=== PATIENT | female | born 1970 | race Caucasian/White ===

== ENCOUNTER 2021-09-29 15:18 | Emergency (ER) | payer OTHER ==
--- NOTE | 2021-09-29 15:41 | ERPHSYRPT ---
- History of Present Illness Time Seen by Provider: 09/29/21 15:50 Source: patient Exam Limitations: no limitations Physician History: Patient is a 50-year-old female presents to emergency department for evaluation of dysuria flank pain dental pain. Patient symptoms started over the past couple days. Patient noticed facial swelling today. The area is tender. Patient has many carious teeth. Patient is partially edentulous. No headache. No nausea or vomiting. Patient also states she has been experiencing dysuria. Patient noted some blood in her urine today. Patient complains of mild left flank pain. No trauma no fever. Symptoms are mild to moderate in intensity. No specific worsening improving factors. Patient voices no other complaints or concerns at this time. Timing/Duration: day(s) (2 days) Severity: moderate Modifying Factors: Improves With: nothing Associated Symptoms: denies symptoms, No nausea, No vomiting, No loss of appetite, No syncope, No seizure Allergies/Adverse Reactions: No Known Drug Allergies Allergy (Verified 09/29/21 15:52) Home Medications: Baclofen 10 mg [Lioresal 10 mg] 10 mg PO TID 09/29/21 [History] Omeprazole 20 mg PO DAILY 09/29/21 [History] - Review of Systems Constitutional: No Symptoms, No Fever, No Chills Eyes: No Symptoms Ears, Nose, & Throat: No Symptoms Respiratory: No Symptoms, No Cough, No Dyspnea Cardiac: No Symptoms, No Chest Pain, No Edema, No Syncope Abdominal/Gastrointestinal: No Symptoms, No Abdominal Pain, No Nausea, No Vomiting, No Diarrhea Genitourinary Symptoms: No Symptoms, No Dysuria Musculoskeletal: No Symptoms, No Back Pain, No Neck Pain Skin: No Symptoms, No Rash Neurological: No Symptoms, No Dizziness, No Focal Weakness, No Sensory Changes Psychological: No Symptoms Endocrine: No Symptoms Hematologic/Lymphatic: No Symptoms Immunological/Allergic: No Symptoms All Other Systems: Reviewed and Negative - Nursing Vital Signs Nursing Vital Signs: Initial Vital Signs Temperature 98.0 F 09/29/21 15:41 Pulse Rate 78 09/29/21 15:41 Blood Pressure 158/77 09/29/21 15:41 O2 Sat by Pulse Oximetry 96 09/29/21 15:41 Pain Scale Pain Intensity 2 - Physical Exam General Appearance: no apparent distress, alert Eye Exam: PERRL/EOMI, eyes nml inspection Ears, Nose, Throat Exam: normal ENT inspection, TMs normal, pharynx normal, moist mucous membranes, other (Dental abscess possible canine space abscess mostly edentulous. The few teeth that are present appear carious.) Neck Exam: normal inspection, non-tender, supple, full range of motion Respiratory Exam: normal breath sounds, lungs clear, airway intact, No respiratory distress Cardiovascular Exam: regular rate/rhythm, normal heart sounds, normal peripheral pulses Gastrointestinal/Abdomen Exam: soft, normal bowel sounds, No tenderness, No mass Back Exam: normal inspection, normal range of motion, No CVA tenderness, No vertebral tenderness Extremity Exam: normal inspection, normal range of motion, pelvis stable Neurologic Exam: alert, oriented x 3, cooperative, normal mood/affect, sensation nml, No motor deficits Skin Exam: normal color, warm, dry, No rash Lymphatic Exam: No adenopathy SpO2 Interpretation: normal SpO2: 96 O2 Delivery: Room Air - Course Nursing assessment & vital signs reviewed: Yes - CT Exams Abdomen/Pelvis CT Interpretation: Tele-radiologist Report (No comps. Negative renal stone or evidence of obstructive uropathy. Mild diffuse fecal stasis greatest right hemicolon. Remaining abdomen pelvis negative.) - Radiology Ultrasound Exam Pelvis Ultrasound: tele radiology report (Negative transvaginal pelvic ultrasound. Uterus anteverted. Measuring 8.1 x 4.2 x 6.4 cm. No masses. Endometrial stripe 4.5 mm. Right ovary is 3 x 1.7 x 2.9 cm left ovary measures 2.7 x 1.3 x 2.4 cm. No suspicious masses.) Ordered Tests: Active Orders 24 hr Category Date Time Status ABDOMEN AND PELVIS W/0 CONTRAS [CT] Stat Exams 09/29/21 17:39 Taken PELVIS TRANS VAGINAL [US] Stat Exams 09/29/21 17:05 Completed CULTURE,URINE Stat Lab 09/29/21 16:15 Received UA W/RFX UR CULTURE Stat Lab 09/29/21 16:15 Completed Transfer Order Routine Transfer 09/29/21 Ordered Medication Summary Discontinued Medications Generic Name Dose Route Start Last Admin Trade Name Freq PRN Reason Stop Dose Admin Amoxicillin/Clavulanate Potassium 875 mg 09/29/21 15:38 09/29/21 16:01 Amox Tr/Potassium Clavulanate 875 Mg Tablet PO 09/29/21 15:39 875 mg STAT ONE Administration Amoxicillin/Clavulanate Potassium Confirm 09/29/21 15:58 Amox Tr/Potassium Clavulanate 875 Mg Tablet Administered 09/29/21 15:59 Dose 875 mg .ROUTE .STK-MED ONE Amoxicillin/Clavulanate Potassium Confirm 09/29/21 16:00 Amox Tr/Potassium Clavulanate 875 Mg Tablet Administered 09/29/21 16:01 Dose 875 mg .ROUTE .STK-MED ONE Ketorolac Tromethamine 30 mg 09/29/21 15:36 09/29/21 16:00 Ketorolac Tromethamine 30 Mg/Ml Inj IM 09/29/21 15:37 30 mg STAT ONE Administration Ketorolac Tromethamine Confirm 09/29/21 15:58 Ketorolac Tromethamine 30 Mg/Ml Inj Administered 09/29/21 15:59 Dose 30 mg .ROUTE .STK-MED ONE Ketorolac Tromethamine Confirm 09/29/21 16:00 Ketorolac Tromethamine 30 Mg/Ml Inj Administered 09/29/21 16:01 Dose 30 mg .ROUTE .STK-MED ONE Lab/Rad Data: Laboratory Results 09/29/21 Range/Units 16:15 Urine Color YELLOW (YELLOW) Urine Appearance SLIGHTLY CLOUDY (CLEAR) Urine pH 7.0 (5-6) Ur Specific [place] 1.008 (1.005-1.025) Urine Protein NEGATIVE (Negative) Urine Ketones NEGATIVE (NEGATIVE) Urine Blood SMALL (0-5) Doug/ul Urine Nitrite NEGATIVE (NEGATIVE) Urine Bilirubin NEGATIVE (NEGATIVE) Urine Urobilinogen NEGATIVE (0-1) mg/dL Ur Leukocyte Esterase MODERATE (NEGATIVE) Urine WBC (Auto) 51-100 (0-5) /HPF Urine RBC (Auto) >101 (0-2) /HPF U Epithel Cells (Auto) NONE (FEW) /HPF Urine Bacteria (Auto) NONE (NEGATIVE) /HPF Urine Mucus (Auto) SLIGHT (NEGATIVE) /HPF Urine Culture Reflexed YES (NO) Urine Glucose NEGATIVE (NEGATIVE) mg/dL - Progress Progress: improved Progress Note: Patient reassessed. Pain improved. Pelvic ultrasound negative. CT abdomen pelvis negative. Patient has a urinary tract infection. IV antibiotics provided. Will discharge home. Patient will be discharged home on Keflex. Plan of care discussed with patient. She agrees to follow-up with her primary care doctor within 48 hours for evaluation. Patient voices no other complaints concerns at this time. Portions of this note were created with voice recognition technology. There may be grammatical, spelling, punctuation or sound alike errors 09/29/21 18:44 Counseled pt/family regarding: lab results, diagnosis, need for follow-up, rad results - Departure Departure Disposition: Home Clinical Impression: Dental abscess, Dysuria, UTI (urinary tract infection) Condition: Stable Critical Care Time: No Referrals: Provider,Unknown [Primary Care Provider] - Follow up/PCP as directed Additional Instructions: Discharge/Care Plan SHREYAS COELHO was seen on 09/29/21 in the Emergency Room. The patient was counseled regarding Diagnosis,Lab results, Imaging studies, need for follow up and when to return to the Emergency Room. Prescriptions given: Discharge Note I have spoken with the patient and/or caregivers. I have explained the patient's condition, diagnosis and treatment plan based on the information available to me at this time. I have answered the patient's and/or caregiver's questions and addressed any concerns. The patient and/or caregivers have as good understanding of the patient's diagnosis, condition and treatment plan as can be expected at t his point. The vital signs have been stable. The patient's condition is stable and appropriate for discharge from the emergency department. The patient will pursue further outpatient evaluation with the primary care physician or other designated or consulting physician as outlined in the discharge instructions. The patient and/or caregivers are agreeable to this plan of care and follow-up instructions have been explained in detail. The patient and/or caregivers have received these instruction. The patient/and or caregivers are aware that any significant change in condition or worsening of symptoms should prompt an immediate return to this or the closest emergency department or call 911. Prescriptions: Cephalexin [Keflex] 750 mg PO BID 7 Days #14
[2021-09-29] MEDS ORDERED: TORAdol 30 mg Injection ONE ×2 (15:58→16:00)
[2021-09-29] MEDS ORDERED: Augmentin 875-125 Tablet ONE ×2 (15:58→16:00)
[2021-09-29] MEDS: TORAdol 30 mg Injection IM ONE (16:00)
[2021-09-29] MEDS: Augmentin 875-125 Tablet PO ONE (16:01)
[2021-09-29 16:42] LABS: Appearance SLIGHTLY CLOUDY (CLEAR); Bilirubin NEGATIVE (NEGATIVE); Blood SMALL Ery/ul (0-5); Glucose NEGATIVE (NEGATIVE); Ketones NEGATIVE (NEGATIVE); Leukocyte Esterase MODERATE (NEGATIVE); Mucus SLIGHT /HPF (NEGATIVE); Nitrite NEGATIVE (NEGATIVE); Protein,Urine Dip NEGATIVE (Negative); Specific Gravity 1.008 (1.005-1.025); Urobilinogen NEGATIVE mg/dL (0-1); WBC 51-100 /HPF (0-5)
[2021-09-29 16:46] LABS: RBC >101 /HPF (0-2)
--- NOTE | 2021-09-29 17:18 | XRAY ---
Indication: Torsion. Two-dimensional transvaginal pelvic sonogram performed. Comparison: None Uterus anteverted measuring 8.1 x 4.2 x 6.4 cm. No focal solid/cystic uterine mass. Endometrial stripe measures 4.5 mm. No endometrial cavity mass or fluid collection. Right ovary measures 3.0 x 1.7 x 2.9 cm and the left measures 2.7 x 1.3 x 2.4 cm. Normal follicular cysts and perfusion bilaterally. No suspicious adnexal mass or free fluid. Impression: Negative transvaginal pelvic sonogram.
[2021-09-29 18:08] VITALS: BP 106/51; PULSE 68
[2021-09-29 18:47] VITALS: O2SAT 96
[2021-09-29 19:48] LABS: CHLAMYDIA DNA NOT DETECTED (NEGATIVE); GC DNA Probe NOT DETECTED (NEGATIVE)
--- NOTE | 2021-09-30 08:47 | XRAY ---
Indication: Hematuria and flank pain. Pelvic cramping. Multiple contiguous axial images obtained through the abdomen and pelvis without contrast using renal stone protocol. Comparison: None Lung bases demonstrates mild dependent atelectasis. Heart not enlarged. No renal calculus or evidence for obstructive uropathy in either system. Urinary bladder normally distended with minimal circumferential wall thickening either incomplete distention versus cystitis. Noncontrasted stomach and bowel loops appear nonobstructed. There is mild diffuse fecal stasis greatest in the right hemicolon. Gallbladder contracted without gallstones. No free fluid/air. Remaining liver, gallbladder, pancreas, spleen, adrenal glands, kidneys, ureters, bladder, uterus, and aorta are unremarkable for noncontrast exam. Osseous structures intact with minimal degenerative changes throughout the thoracolumbar spine. No ventral or inguinal hernias. Impression: 1. Negative renal calculus or evidence for obstructive uropathy. 2. Urinary bladder wall thickening either incomplete distention versus cystitis. 3. Mild diffuse fecal stasis.
== END 2021-09-29 18:55 | disposition home or self-care (01) ==
LOC: ED 15:18
DX: N39.0 Urinary tract infection, site not specified (principal); R30.0 Dysuria; K04.7 Periapical abscess without sinus; K08.89 Other specified disorders of teeth and supporting structures; R10.32 Left lower quadrant pain
CPT/HCPCS: 74176; 76830; 81001; 87086; 87491; 87591; 96372; 99284; J1885; A9270-GY

== ENCOUNTER 2022-03-29 20:44 | Emergency (ER) | payer OTHER ==
[2022-03-29 21:19] LABS: Absolute Neutrophil Ct (ANC) 4.32 x10^3/uL (1.4-6.9); Basophil (Absolute #) 0.07 x10^3/uL (0-0.4); Eosinophil % 2.5 % (0.00-5.0); Eosinophil (Absolute #) 0.19 x10^3/uL (0-0.5); Hematocrit 42.5 % (35-47); Hemoglobin 14.3 g/dL (12.0-16.0); Lymphocyte (Absolute #) 2.35 x10^3/uL (1.0-4.6); Lymphocytes % 31.4 % (24.0-44.0); Mean Cell Volume 96.4 fL (78-100); Mean Corpuscular Hemoglobin 32.4 pg (26-32); Mean Corpuscular Hgb Concent. 33.6 g/dL (32-36); Mean Platelet Volume 9.5 fL (7.5-11.0); Monocyte (Absolute #) 0.54 x10^3/uL (0.0-1.3); Monocytes % 7.2 % (0.0-12.0); Neutrophil % 57.7 % (36.0-66.0); Platelet Count 246 x10^3/uL (150-450); Red Blood Count 4.41 x10^6/uL (4.1-5.4); Red Cell Distribution Width 12.9 % (11.5-14.0); White Blood Count 7.5 x10^3/uL (4.0-10.5)
[2022-03-29 21:44] LABS: ALBUMIN 4.3 g/dL (3.5-5.0); ALKALINE PHOSPHATASE 68 U/L (38-126); ANION GAP 11.7 MEQ/L (5-15); BLOOD UREA NITROGEN 7 mg/dL (7-17); CHLORIDE 108 mmol/L (98-107); Calcium 9.4 mg/dL (8.4-10.2); Carbon Dioxide 25 mmol/L (22-30); Creatinine 1 0.89 mg/dL (0.52-1.04); EST GLOMERULAR FILTRATION RATE > 60.0 ML/MIN; Glucose 107 mg/dL (74-106); NT PRO BNP 33.4 pg/mL (0-900); Potassium 3.3 mmol/L (3.5-5.1); SGOT/AST 24 U/L (14-36); SGPT/ALT 13 U/L (0-35); SODIUM 142 mmol/L (137-145); Total Protein 7.6 g/dL (6.3-8.2)
--- NOTE | 2022-03-29 22:16 | ERPHSYRPT ---
- History of Present Illness Time Seen by Provider: 03/29/22 20:50 Source: patient Exam Limitations: no limitations Patient Subjective Stated Complaint: pt states she has been feeling sob and feeling like her heart is racing, she states she has been drinking lots of energy drinks lately.states she has no pain at this time. states she feels like she has been overexerting self since she has been moving. Triage Nursing Assessment: pt is alert and oriented x4. pt vitals are within normal limits. pt in bed at this timwith no complaints of pain or discomfort. Physician History: Patient is a 51-year-old female presents to emergency department for evaluation of shortness of breath and heart palpitations. Symptoms started today. Patient believes that it may be related to her energy drinks. Patient states she has been moving and overexerting herself. Symptoms are not associated with chest pain. No nausea vomiting or diaphoresis. No falls. No trauma. Patient denies history of the same. Symptoms are mild in intensity. No specific worsening improving factors. Patient voices no other complaints or concerns at this time. Timing/Duration: today Activities at Onset: activity Severity of Dyspnea-Max: moderate Severity of Dyspnea-Current: mild Possible Cause: no prior episodes Modifying Factors: Improves With: activity. Worsens With: lying down Associated Symptoms: denies symptoms Allergies/Adverse Reactions: No Known Drug Allergies Allergy (Verified 03/29/22 20:56) Home Medications: Baclofen 10 mg [Lioresal 10 mg] 10 mg PO TID 09/29/21 [History] Omeprazole 20 mg PO DAILY 09/29/21 [History] Hx Tetanus, Diphtheria Vaccination/Date Given: No Hx Influenza Vaccination/Date Given: No Hx Pneumococcal Vaccination/Date Given: No Travel Risk - International Travel Have you traveled outside of the country in past 3 weeks: No - Coronavirus Screening Are you exhibiting any of the following symptoms?: No Close contact with a COVID-19 positive Pt in past 14-21 Days: No - Vaccine Status Have you recieved a Covid-19 vaccination: No - Review of Systems Constitutional: No Symptoms, No Fever, No Chills Eyes: No Symptoms Ears, Nose, & Throat: No Symptoms Respiratory: No Symptoms, No Cough, No Dyspnea Cardiac: No Symptoms, No Chest Pain, No Edema, No Syncope Abdominal/Gastrointestinal: No Symptoms, No Abdominal Pain, No Nausea, No Vomiting, No Diarrhea Genitourinary Symptoms: No Symptoms, No Dysuria Musculoskeletal: No Symptoms, No Back Pain, No Neck Pain Skin: No Symptoms, No Rash Neurological: No Symptoms, No Dizziness, No Focal Weakness, No Sensory Changes Psychological: No Symptoms Endocrine: No Symptoms Hematologic/Lymphatic: No Symptoms Immunological/Allergic: No Symptoms All Other Systems: Reviewed and Negative - Past Medical History Pertinent Past Medical History: Yes Musculoskeletal History: Rheumatoid Arthritis GI Medical History: GERD Psycho-Social History: Depression Other Medical History: herniated disc, muscle spasms - Past Surgical History Past Surgical History: Yes Female Surgical History: Dilation & Curettage, Tubal Ligation Other Surgical History: muscle was cut in the bottom of her foot - Social History Smoking Status: Current every day smoker Exposure to second hand smoke: Yes Drug Use: none Patient Lives Alone: No - Nursing Vital Signs Nursing Vital Signs: Initial Vital Signs Temperature 97.8 F 03/29/22 20:45 Pulse Rate 86 03/29/22 20:45 Respiratory Rate 18 03/29/22 20:45 Blood Pressure 135/74 03/29/22 20:45 O2 Sat by Pulse Oximetry 98 03/29/22 20:45 Pain Scale Pain Intensity 0 - Physical Exam General Appearance: no apparent distress, alert Eye Exam: PERRL/EOMI Ears, Nose, Throat Exam: hearing grossly normal, normal ENT inspection, normal pharynx Neck Exam: normal inspection, supple, full range of motion, No non-tender Respiratory Exam: normal breath sounds, lungs clear, airway intact, No respiratory distress Cardiovascular/Chest Exam: normal heart sounds, regular rate/rhythm Abdominal/Gastrointestinal Exam: soft, No tenderness, No distention, No mass Extremity Exam: non-tender, normal range of motion, normal inspection, no calf tenderness, no pedal edema Peripheral Pulses Exam: dorsalis-pedis (R): 2+, dorsalis-pedis (L): 2+ Neurologic Exam: alert, oriented x 3, cooperative, motion picture critic II-XII nml as tested, sensation nml, No motor deficits Skin Exam: normal color, warm, No dry Lymphatic Exam: No adenopathy SpO2 Interpretation: normal SpO2: 98 O2 Delivery: Room Air - Course Nursing assessment & vital signs reviewed: Yes EKG Interpreted by Me: RATE (86), Sinus Rhythm, Left Mullens Deviation, NORMAL INTERVALS - Radiology Exams Chest X-ray Interpretation: Interpreted by me (Lungs are clear. Normal cardiac silhouette. Intact bony thorax.) Ordered Tests: Active Orders 24 hr Category Date Time Status Art Therapist STAT Care 03/29/22 21:08 Active EKG-ER Only STAT Care 03/29/22 21:07 Active IV Insertion STAT Care 03/29/22 21:07 Active Pulse Oximetry (ED) STAT Care 03/29/22 21:07 Active CHEST 1 VIEW (PORTABLE) Stat Exams 03/29/22 21:08 Taken CBC W DIFF Stat Lab 03/29/22 21:17 Completed CMP Stat Lab 03/29/22 21:17 Completed D-DIMER QUANTITATIVE Stat Lab 03/29/22 21:17 Completed NT PRO BNP Stat Lab 03/29/22 21:17 Completed TROPONIN Q3H Lab 03/29/22 21:17 Completed TROPONIN Q3H Lab 03/30/22 00:04 Completed TROPONIN Q3H Lab 03/30/22 03:15 Ordered TROPONIN Q3H Lab 03/30/22 06:15 Ordered TROPONIN Q3H Lab 03/30/22 09:15 Ordered Medication Summary Discontinued Medications Generic Name Dose Route Start Last Admin Trade Name Freq PRN Reason Stop Dose Admin Potassium Chloride 40 meq 03/30/22 00:59 03/30/22 01:01 Potassium Chloride Tab 10 Meq Tab PO 03/30/22 01:00 40 meq STAT ONE Administration Potassium Chloride Confirm 03/30/22 01:01 Potassium Chloride Tab 10 Meq Tab Administered 03/30/22 01:02 Dose 40 meq PO .STK-MED ONE Lab/Rad Data: Laboratory Result Diagrams 03/29/22 21:17 03/29/22 21:17 Laboratory Results 03/30/22 03/29/22 03/29/22 Range/Units 00:04 21:17 21:17 WBC (4.0-10.5) x10^3/uL RBC (4.1-5.4) x10^6/uL Hgb (12.0-16.0) g/dL Hct (35-47) % MCV (78-100) fL MCH (26-32) pg MCHC (32-36) g/dL RDW (11.5-14.0) % Plt Count (150-450) x10^3/uL MPV (7.5-11.0) fL Gran % (36.0-66.0) % Immature Gran % (Auto) (0.00-0.4) % Nucleat RBC Rel Count (0.00-0.1) % Eos # (Auto) (0-0.5) x10^3/uL Immature Gran # (Auto) (0.00-0.03) x10^3u/L Absolute Lymphs (auto) (1.0-4.6) x10^3/uL Absolute Monos (auto) (0.0-1.3) x10^3/uL Absolute Nucleated RBC (0.00-0.01) x10^3u/L Lymphocytes % (24.0-44.0) % Monocytes % (0.0-12.0) % Eosinophils % (0.00-5.0) % Basophils % (0.0-0.4) % Absolute Granulocytes (1.4-6.9) x10^3/uL Basophils # (0-0.4) x10^3/uL D-Dimer 0.28 (0.0-0.50) mg/L Sodium (137-145) mmol/L Potassium (3.5-5.1) mmol/L Chloride (98-107) mmol/L Carbon Dioxide (22-30) mmol/L Anion Gap (5-15) MEQ/L BUN (7-17) mg/dL Creatinine (0.52-1.04) mg/dL Estimated GFR ML/MIN Glucose (74-106) mg/dL Calcium (8.4-10.2) mg/dL Total Bilirubin (0.2-1.3) mg/dL AST (14-36) U/L ALT (0-35) U/L Alkaline Phosphatase (38-126) U/L Troponin I < 0.012 < 0.012 (0.000-0.034) ng/mL NT-Pro-B Natriuret Pep (0-900) pg/mL Serum Total Protein (6.3-8.2) g/dL Albumin (3.5-5.0) g/dL 03/29/22 03/29/22 Range/Units 21:17 21:17 WBC 7.5 (4.0-10.5) x10^3/uL RBC 4.41 (4.1-5.4) x10^6/uL Hgb 14.3 (12.0-16.0) g/dL Hct 42.5 (35-47) % MCV 96.4 (78-100) fL MCH 32.4 H (26-32) pg MCHC 33.6 (32-36) g/dL RDW 12.9 (11.5-14.0) % Plt Count 246 (150-450) x10^3/uL MPV 9.5 (7.5-11.0) fL Gran % 57.7 (36.0-66.0) % Immature Gran % (Auto) 0.3 (0.00-0.4) % Nucleat RBC Rel Count 0.0 (0.00-0.1) % Eos # (Auto) 0.19 (0-0.5) x10^3/uL Immature Gran # (Auto) 0.02 (0.00-0.03) x10^3u/L Absolute Lymphs (auto) 2.35 (1.0-4.6) x10^3/uL Absolute Monos (auto) 0.54 (0.0-1.3) x10^3/uL Absolute Nucleated RBC 0.00 (0.00-0.01) x10^3u/L Lymphocytes % 31.4 (24.0-44.0) % Monocytes % 7.2 (0.0-12.0) % Eosinophils % 2.5 (0.00-5.0) % Basophils % 0.9 (0.0-0.4) % Absolute Granulocytes 4.32 (1.4-6.9) x10^3/uL Basophils # 0.07 (0-0.4) x10^3/uL D-Dimer (0.0-0.50) mg/L Sodium 142 (137-145) mmol/L Potassium 3.3 L (3.5-5.1) mmol/L Chloride 108 H (98-107) mmol/L Carbon Dioxide 25 (22-30) mmol/L Anion Gap 11.7 (5-15) MEQ/L BUN 7 (7-17) mg/dL Creatinine 0.89 (0.52-1.04) mg/dL Estimated GFR > 60.0 ML/MIN Glucose 107 H (74-106) mg/dL Calcium 9.4 (8.4-10.2) mg/dL Total Bilirubin 0.40 (0.2-1.3) mg/dL AST 24 (14-36) U/L ALT 13 (0-35) U/L Alkaline Phosphatase 68 (38-126) U/L Troponin I (0.000-0.034) ng/mL NT-Pro-B Natriuret Pep 33.4 (0-900) pg/mL Serum Total Protein 7.6 (6.3-8.2) g/dL Albumin 4.3 (3.5-5.0) g/dL - Progress Progress: improved Air Movement: good Progress Note: Patient reassessed. She feels well. Patient asymptomatic. No chest pain troponin negative x2. Laboratory work-up essentially unremarkable. Chest x-ray negative as well. EKG shows a normal sinus rhythm. No indication for work-up at this time. Will discharge home. Patient agrees to follow-up with primary care doctor within 48 hours for evaluation. 03/30/22 01:03 Heart score is a 2. Risk of MACE is 0.9 to 1.7% Portions of this note were created with voice recognition technology. There may be grammatical, spelling, punctuation or sound alike errors Blood Culture(s) Obtained: No Antibiotics given: No Counseled pt/family regarding: lab results, diagnosis, need for follow-up, rad results - Departure Departure Disposition: Home Clinical Impression: Hypokalemia, SOB (shortness of breath), Heart palpitations Condition: Stable Critical Care Time: No Referrals: JERICHO BENITEZ NP [Primary Care Provider] - Follow up/PCP as directed Additional Instructions: Discharge/Care Plan SHREYAS COELHO was seen on 03/30/22 in the Emergency Room. The patient was counseled regarding Diagnosis,Lab results, Imaging studies, need for follow up and when to return to the Emergency Room. Prescriptions given: Discharge Note I have spoken with the patient and/or caregivers. I have explained the patient's condition, diagnosis and treatment plan based on the information available to me at this time. I have answered the patient's and/or caregiver's questions and addressed any concerns. The patient and/or caregivers have as good understanding of the patient's diagnosis, condition and treatment plan as can be expected at this point. The vital signs have been stable. The patient's condition is stable and appropriate for discharge from the emergency department. The patient will pursue further outpatient evaluation with the primary care physician or other designated or consulting physician as outlined in the discharge instructions. The patient and/or caregivers are agreeable to this plan of care and follow-up instructions have been explained in detail. The patient and/or caregivers have received these instruction. The patient/and or caregivers are aware that any significant change in condition or worsening of symptoms should prompt an immediate return to this or the closest emergency department or call 911.
[2022-03-29 22:28] VITALS: O2SAT 98
[2022-03-30] MEDS ORDERED: Klor Con PO ONE ×2 (00:59→01:01)
[2022-03-30 01:11] VITALS: BP 117/70; PULSE 66
--- NOTE | 2022-03-30 08:56 | XRAY ---
Indication: Short of breath. Comparison: None Portable chest demonstrates normal heart and lungs. Bony thorax intact with mild degenerative changes.
== END 2022-03-30 01:14 | disposition home or self-care (01) ==
LOC: ED 20:44
DX: E87.6 Hypokalemia (principal); R06.02 Shortness of breath; R00.2 Palpitations; Z72.0 Tobacco use; Z79.899 Other long term (current) drug therapy; Z28.310 Unvaccinated for COVID-19
CPT/HCPCS: 36000; 36415; 71045; 80053; 83880; 84484; 85025; 85379; 93005; 93041; 94760; 99284; A9270-GY

== ENCOUNTER 2022-07-02 18:30 | Emergency (ER) | payer OTHER ==
[2022-07-02 18:52] VITALS: BP 130/87; PULSE 71; O2SAT 95
[2022-07-02 18:56] LABS: Appearance SLIGHTLY CLOUDY (CLEAR); Bilirubin NEGATIVE (NEGATIVE); Glucose NEGATIVE (NEGATIVE); Ketones NEGATIVE (NEGATIVE); RBC MODERATE Ery/ul (0-5); Specific Gravity 1.025 (1.005-1.025)
[2022-07-02 18:57] LABS: Dipstick done @ ? MAIN LAB; Nitrite POSITIVE (NEGATIVE); Protein,Urine Dip 100 (Negative); Urobilinogen 0.2 mg/dL (0-1)
[2022-07-02 19:01] LABS: Bacteria MANY /HPF (NEGATIVE); Mucus SLIGHT /HPF (NEGATIVE); RBC 26-50 /HPF (0-2); Urine Cultured Indicated? YES; WBC >100 /HPF (0-5)
[2022-07-02] MEDS ORDERED: Rocephin 1000 MG INJ IM ONE (20:50)
[2022-07-02] MEDS ORDERED: Rocephin 1000 MG INJ ONE (20:51)
--- NOTE | 2022-07-02 21:06 | ERPHSYRPT ---
- History of Present Illness Time Seen by Provider: 07/02/22 20:45 Source: patient Exam Limitations: no limitations Patient Subjective Stated Complaint: UTI symptoms Triage Nursing Assessment: Patient ambulated back to ED and transferred self to bed. Patient A+O X3. Patient's skin pink, warm dry. Patient complains of urgency, frequency and hesitancy when urinating. Patient states she was being treated for UTI and finished Macrobid two days ago. Patient complains of lower abdominal and flank pain 04/17. Urine noted to be dark aldair. Physician History: 51 years old female presented in the ER with chief complaint of increased urinary frequency, suprapubic/pelvic discomfort for almost 1 week with burning urination. She was seen outpatient and is on Macrobid with no significant relief and now having pain going at the back with some radiation to the flank area with nausea but no fever or chills reported. Timing/Duration: week(s) (1), gradual onset, worse Activites at Onset: none Quality: burning, fullness Onset Location: suprapubic, urethral Allergies/Adverse Reactions: No Known Drug Allergies Allergy (Verified 07/02/22 18:41) Home Medications: Baclofen 10 mg [Lioresal 10 mg] 10 mg PO TID 09/29/21 [History] Omeprazole 20 mg PO DAILY 09/29/21 [History] Hx Tetanus, Diphtheria Vaccination/Date Given: No Hx Influenza Vaccination/Date Given: No Hx Pneumococcal Vaccination/Date Given: No Travel Risk - International Travel Have you traveled outside of the country in past 3 weeks: No - Coronavirus Screening Are you exhibiting any of the following symptoms?: No Close contact with a COVID-19 positive Pt in past 14-21 Days: No - Vaccine Status Have you recieved a Covid-19 vaccination: No - Review of Systems Constitutional: No Symptoms Eyes: No Symptoms Ears, Nose, & Throat: No Symptoms Respiratory: No Symptoms Cardiac: No Symptoms Abdominal/Gastrointestinal: Abdominal Pain, Nausea Genitourinary Symptoms: Dysuria, Frequency, Hematuria Musculoskeletal: Arthralgias Skin: No Symptoms Neurological: No Symptoms Psychological: No Symptoms Endocrine: No Symptoms Hematologic/Lymphatic: No Symptoms Immunological/Allergic: No Symptoms - Past Medical History Pertinent Past Medical History: Yes Musculoskeletal History: Rheumatoid Arthritis GI Medical History: GERD Psycho-Social History: Depression Other Medical History: herniated disc, muscle spasms - Past Surgical History Past Surgical History: Yes Female Surgical History: Dilation & Curettage, Tubal Ligation Other Surgical History: muscle was cut in the bottom of her foot - Social History Smoking Status: Current every day smoker How long have you smoked: years Exposure to second hand smoke: Yes Drug Use: none Patient Lives Alone: No - Nursing Vital Signs Nursing Vital Signs: Initial Vital Signs Temperature 97.7 F 07/02/22 18:44 Pulse Rate 71 07/02/22 18:44 Respiratory Rate 18 07/02/22 18:44 Blood Pressure 130/87 07/02/22 18:44 O2 Sat by Pulse Oximetry 95 07/02/22 18:44 Pain Scale Pain Intensity 7 - Physical Exam General Appearance: no apparent distress, alert Eye Exam: PERRL/EOMI Ears, Nose, Throat Exam: normal ENT inspection, pharynx normal Neck Exam: normal inspection, non-tender, supple, full range of motion Respiratory Exam: normal breath sounds, lungs clear Cardiovascular Exam: regular rate/rhythm, normal heart sounds Gastrointestinal/Abdomen Exam: soft, normal bowel sounds, tenderness (Minimal suprapubic tenderness. No CVA tenderness. No flank tenderness.) Back Exam: normal inspection, normal range of motion Extremity Exam: normal inspection Neurologic Exam: alert, cooperative Skin Exam: normal color SpO2 Interpretation: normal SpO2: 95 O2 Delivery: Room Air Ordered Tests: Active Orders 24 hr Category Date Time Status CULTURE,URINE Stat Lab 07/02/22 18:43 Received UA W/RFX CULTURE Stat Lab 07/02/22 18:43 Completed Medication Summary Discontinued Medications Generic Name Dose Route Start Last Admin Trade Name Susie PRN Reason Stop Dose Admin Ceftriaxone Sodium 1,000 mg 07/02/22 20:50 07/02/22 21:37 Ceftriaxone Sodium 1000 Mg Inj Vial IM 07/02/22 20:51 1,000 mg STAT ONE Administration Ceftriaxone Sodium Confirm 07/02/22 20:51 Ceftriaxone Sodium 1000 Mg Inj Vial Administered 07/02/22 20:52 Dose 1,000 mg .ROUTE .STK-MED ONE Lab/Rad Data: Laboratory Results 07/02/22 Range/Units 18:43 Urinalys Dipstick Clnc MAIN LAB Urine Color DARK YELLOW (YELLOW) Urine Appearance SLIGHTLY CLOUDY (CLEAR) Urine pH 6.0 (5-6) Ur Specific [place] 1.025 (1.005-1.025) POC Urine Protein Conf 100 (Negative) Urine Ketones NEGATIVE (NEGATIVE) Urine Nitrite POSITIVE (NEGATIVE) Urine Bilirubin NEGATIVE (NEGATIVE) Urine Urobilinogen 0.2 (0-1) mg/dL Urine Leukocytes MODERATE (NEGATIVE) Urine WBC (Auto) >100 (0-5) /HPF Urine RBC (Auto) 26-50 (0-2) /HPF U Epithel Cells (Auto) NONE (FEW) /HPF Urine Bacteria (Auto) MANY (NEGATIVE) /HPF Urine RBC MODERATE (0-5) Doug/ul Unidentified Crystals 2-5 (NEGATIVE) /HPF Urine Mucus (Auto) SLIGHT (NEGATIVE) /HPF Ur Culture Indicated? YES Urine Glucose NEGATIVE (NEGATIVE) mg/dL - Progress Progress: re-examined Air Movement: good Progress Note: 07/02/22 21:42 She still have UTI. Was given a dose of Rocephin in here. Started on cefuroxime. Offered pain medication which he refused. Do not think she needs imaging or other work-up, minimal suprapubic tenderness. No flank tenderness or CVA tenderness. Nontoxic appearance. Recommended Tylenol ibuprofen and outpatient follow-up. Discussed signs symptoms of worsening return to ER which he seems understanding. Stable for discharge. Blood Culture(s) Obtained: No Antibiotics given: Yes Counseled pt/family regarding: lab results, diagnosis, need for follow-up - Departure Departure Disposition: Home Clinical Impression: Acute UTI Condition: Stable Critical Care Time: No Referrals: JERICHO BENITEZ DISPLAY DECORATOR [Primary Care Provider] - Follow up/PCP as directed (In 2 days for reevaluation) Instructions: Urinary Tract Infection, Adult (DC) Additional Instructions: Take Tylenol/ibuprofen as needed for pain. Drink plenty of fluids. Continue with antibiotics. Follow-up with primary care for reevaluation. Return to ER for worsening pain, difficulty urination, fever chills/intractable nausea vomiting etc. Prescriptions: Cefpodoxime Proxetil 200 mg [Vantin 200 mg] 200 mg PO BID 7 Days #14 tablet
== END 2022-07-02 21:53 | disposition home or self-care (01) ==
LOC: ED 18:30
DX: N39.0 Urinary tract infection, site not specified (principal); R35.0 Frequency of micturition; R10.2 Pelvic and perineal pain; R30.0 Dysuria; R11.0 Nausea; Z72.0 Tobacco use; Z79.899 Other long term (current) drug therapy; Z28.310 Unvaccinated for COVID-19
CPT/HCPCS: 81015; 87077; 87086; 87186; 96372; 99283; J0696